=== PATIENT | female | born 1980 | race Caucasian/White ===

== ENCOUNTER 2018-04-10 05:11 | Emergency (ER) | payer BC ==
[~2018-04-10] VITALS: Ht 157.5 cm; Wt 71.4 kg
[~2018-04-10 05:11] MED LIST: HYDROCHLOROTH12.5 M2; HYDROCHLOROTH12.5 M2 PO; OMEPRAZOLE20 M2 PO; VITAMIN D5000 I1 PO; VOL25 PO
[2018-04-10 05:19] VITALS: Ht 157.5 cm; Wt 71.4 kg
[2018-04-10 07:33] VITALS: BP 102/58
== END 2018-04-10 07:33 | disposition home or self-care (01) ==
LOC: ED 05:11
DX: R07.89 Other chest pain (principal); R06.02 Shortness of breath; M79.7 Fibromyalgia
CPT/HCPCS: J1885; Q0092